=== PATIENT | male | born 1940 | race Caucasian/White ===

== ENCOUNTER 2024-05-02 10:14 | Inpatient (IN) | payer MEDICARE, MEDICAID ==
[~2024-05-02] VITALS: Ht 175.3 cm; Wt 61.4 kg
[2024-05-02] MEDS: normal saline 1000ML IV soln IVB ONE (11:12)
[2024-05-02 11:43] LABS: BASOPHILS % (AUTO) 0.2 % (0-1); EOSINOPHILS # (AUTO) 0.1 X10'3 (0-0.9); HEMATOCRIT 47.6 % (42.0-52.0); HEMOGLOBIN 15.9 g/dl (14.0-17.9); LYMPHOCYTES # (AUTO) 0.5 X10'3 (1.1-4.8); LYMPHOCYTES % (AUTO) 6.4 % (21-51); MEAN CORPUSCULAR HEMOGLOBIN 31.4 PG (27.0-31.0); MEAN CORPUSCULAR HGB CONC 33.5 g/dL (33.0-36.5); MEAN CORPUSCULAR VOLUME 93.8 FL (78-98); MONOCYTES # (AUTO) 0.8 X10'3 (0-0.9); MONOCYTES % (AUTO) 10.1 % (2-12); NEUTROPHILS # (AUTO) 6.2 X10'3 (1.8-7.7); NEUTROPHILS % (AUTO) 82.3 % (42-75); PLATELET COUNT 135 X10'3 (140-440); RED BLOOD COUNT 5.07 X10'6 (4.70-6.10); RED CELL DISTRIBUTION WIDTH 15.4 % (11.5-14.5); WHITE BLOOD COUNT 7.5 X10'3 (4.5-11.0)
[2024-05-02 12:06] LABS: ALANINE AMINOTRANSFERASE 379 U/L (12-78); ALBUMIN 3.3 G/DL (3.4-5.0); ALKALINE PHOSPHATASE 197 IU/L (46-116); ANION GAP 12 (8-16); ASPARTATE AMINO TRANSFERASE 261 U/L (10-37); BILIRUBIN,TOTAL 4.9 MG/DL (0.1-1.0); BLOOD UREA NITROGEN 7 MG/DL (7-18); BUN/CREATININE RATIO 10.9 (10.0-20.0); CALCIUM 8.5 MG/DL (8.5-10.1); CHLORIDE 108 MMOL/L (99-107); CREATININE 0.64 MG/DL (0.60-1.10); GLUCOSE 87 MG/DL (70-104); POTASSIUM 3.5 MMOL/L (3.5-5.1); SODIUM 144 MMOL/L (135-145); TOTAL CARBON DIOXIDE 23.6 MMOL/L (24-32); eCRCL 79 ML/MIN; eGFR > 90 ML/MIN
[2024-05-02 12:37] LABS: ALBUMIN/GLOBULIN RATIO 1.2 (1.1-1.5)
[2024-05-02] MEDS ORDERED: potassium Cl 40MEQ/1/2NS 520ml 520 ML IV PRN (13:10)
[2024-05-02] MEDS ORDERED: magnesium hydroxide 30ml (MOM) UD suspension PO PRN (13:10)
[2024-05-02] MEDS ORDERED: magnesium sulf-water 2g/50mL 50 ML IV PRN (13:10)
[2024-05-02] MEDS ORDERED: mag hydrox/Alum hydrox/simeth 30ml oral suspension PO PRN (13:10)
[2024-05-02] MEDS ORDERED: magnesium sulf-water 4G/100mL 100 ML IV PRN (13:10)
[2024-05-02] MEDS ORDERED: morphine 2 MG/ML inj. syringe IV PRN (13:10)
[2024-05-02] MEDS ORDERED: potassium Cl 20 mEq SR tablet PO PRN ×2 (13:10)
[2024-05-02 13:58] LABS: LIPASE 111 U/L (16-77)
[2024-05-02] MEDS: ondansetron/PF 4mg/2ml inj IV PRN (16:24)
[2024-05-02] MEDS: morphine 2 MG/ML inj. syringe IV PRN (16:25)
[2024-05-02] MEDS: ringers solution, lacted 1,000 ML IV SCH (16:25)
[2024-05-02] MEDS: ringers solution, lacted 1,000 ML IV STA (16:25)
[2024-05-02] MEDS: docusate sod 100mg capsule PO SCH (20:00)
[2024-05-02] MEDS: K and/or MAG REPLACEMENT MC SCH (20:00)
[2024-05-02] MEDS: heparin, porcine 5000 units/ml vial SQ SCH (20:00)
[2024-05-02] MEDS: piperacillin/tazo 3.375gm/50ml 50 ML IV SCH (21:20)
[2024-05-02 22:00] VITALS: BP 123/72; PULSE 84; RESP 19; TEMP 98.7; O2SAT 95
[2024-05-02 23:46] VITALS: RESP 19; O2SAT 95
[2024-05-03] VITALS (16 sets, daily range): BP systolic 101–144; BP diastolic 58–81; PULSE 62–92; RESP 13–18; TEMP 97.2–97.9; O2SAT 92–97
[2024-05-03] MEDS ORDERED: LIDO700A47 TOP (00:58)
[2024-05-03] MEDS ORDERED: MELA1TAB52 PO (00:58)
[2024-05-03] MEDS ORDERED: MULT-1085 PO (00:58)
[2024-05-03] MEDS ORDERED: ALBU18HF2 INH (00:58)
[2024-05-03] MEDS ORDERED: prevagen (00:58)
[2024-05-03] MEDS ORDERED: ANTI1CAP5 (00:58)
[2024-05-03] MEDS ORDERED: SACC250C12 (00:58)
[2024-05-03] MEDS ORDERED: MAGN24002 PO (00:58)
[2024-05-03] MEDS ORDERED: ACET325C6 PO (00:58)
[2024-05-03] MEDS ORDERED: APIX5TAB3 PO (00:58)
[2024-05-03] MEDS ORDERED: ATOR-2 PO (00:58)
[2024-05-03] MEDS ORDERED: BISA10SU60 RC (00:58)
[2024-05-03] MEDS ORDERED: FLUT1BLS4 INH (00:58)
[2024-05-03] MEDS ORDERED: EMPA10TA PO (00:58)
[2024-05-03] MEDS ORDERED: NA P230E (00:58)
[2024-05-03 06:12] LABS: BASOPHILS % (AUTO) 0.7 % (0-1); EOSINOPHILS # (AUTO) 0.1 X10'3 (0-0.9); EOSINOPHILS % (AUTO) 1.4 % (0-6); HEMATOCRIT 44.2 % (42.0-52.0); HEMOGLOBIN 14.4 g/dl (14.0-17.9); LYMPHOCYTES # (AUTO) 0.7 X10'3 (1.1-4.8); MEAN CORPUSCULAR HEMOGLOBIN 30.8 PG (27.0-31.0); MEAN CORPUSCULAR HGB CONC 32.6 g/dL (33.0-36.5); MEAN CORPUSCULAR VOLUME 94.4 FL (78-98); MONOCYTES # (AUTO) 0.7 X10'3 (0-0.9); NEUTROPHILS # (AUTO) 5.9 X10'3 (1.8-7.7); NEUTROPHILS % (AUTO) 79.9 % (42-75); PLATELET COUNT 126 X10'3 (140-440); RED BLOOD COUNT 4.68 X10'6 (4.70-6.10); RED CELL DISTRIBUTION WIDTH 15.4 % (11.5-14.5); WHITE BLOOD COUNT 7.3 X10'3 (4.5-11.0)
[2024-05-03 06:26] LABS: ALANINE AMINOTRANSFERASE 250 U/L (12-78); ALBUMIN 2.7 G/DL (3.4-5.0); ALBUMIN/GLOBULIN RATIO 1.1 (1.1-1.5); ALKALINE PHOSPHATASE 185 IU/L (46-116); ANION GAP 13 (8-16); ASPARTATE AMINO TRANSFERASE 124 U/L (10-37); BLOOD UREA NITROGEN 10 MG/DL (7-18); BUN/CREATININE RATIO 12.3 (10.0-20.0); CALCIUM 8.4 MG/DL (8.5-10.1); CHLORIDE 107 MMOL/L (99-107); CREATININE 0.81 MG/DL (0.60-1.10); GLUCOSE 62 MG/DL (70-104); MAGNESIUM 1.7 MG/DL (1.5-2.4); POTASSIUM 4.4 MMOL/L (3.5-5.1); SODIUM 141 MMOL/L (135-145); TOTAL CARBON DIOXIDE 21.4 MMOL/L (24-32); TOTAL PROTEIN 5.2 G/DL (6.4-8.2); eCRCL 62 ML/MIN; eGFR > 90 ML/MIN
[2024-05-03] MEDS: sod chloride 0.9% 10ml flush syringe IV SCH (08:00)
[2024-05-03] MEDS ORDERED: iohexol 300mg/ml 100ml inj. ONE (13:46)
[2024-05-03] MEDS ORDERED: glucagon, human recombinant 1mg kit ONE ×2 (14:04→14:05)
[2024-05-03] MEDS ORDERED: fentaNYL/PF 50MCG/1 ML 2ML syringe ONE (14:04)
[2024-05-03] MEDS ORDERED: LIDOcaine 2% Viscous 15ml cup ONE (14:05)
[2024-05-03] MEDS ORDERED: MIDAZolam 1 MG/ML 5ML VIAL ONE (14:05)
[2024-05-03] MEDS ORDERED: epiNEPHrine 0.1mg/ml 10ml syringe ONE (14:06)
[2024-05-03] MEDS ORDERED: diphenhydrAMINE 50 mg/ml inj ONE (14:06)
[2024-05-03] MEDS ORDERED: albuterol 2.5 MG/3 ML nebule NEB PRN (15:40)
[2024-05-03] MEDS ORDERED: acetaminophen 325mg tablet PO PRN (15:40)
[2024-05-03] MEDS ORDERED: apixaban 5mg tablet PO SCH (20:00)
[2024-05-03] MEDS: heparin, porcine 5000 units/ml vial SQ SCH (21:31)
[2024-05-04] MEDS: acetaminophen 325mg tablet PO PRN (01:40)
[2024-05-04 02:00] VITALS: BP 113/62; PULSE 76; RESP 19; TEMP 97.8; O2SAT 96
[2024-05-04 06:50] LABS: BASOPHILS % (AUTO) 0.3 % (0-1); EOSINOPHILS # (AUTO) 0.1 X10'3 (0-0.9); EOSINOPHILS % (AUTO) 1.5 % (0-6); HEMATOCRIT 44.2 % (42.0-52.0); HEMOGLOBIN 14.8 g/dl (14.0-17.9); LYMPHOCYTES # (AUTO) 0.7 X10'3 (1.1-4.8); LYMPHOCYTES % (AUTO) 8.4 % (21-51); MEAN CORPUSCULAR HEMOGLOBIN 31.2 PG (27.0-31.0); MEAN CORPUSCULAR HGB CONC 33.4 g/dL (33.0-36.5); MEAN CORPUSCULAR VOLUME 93.3 FL (78-98); MEAN PLATELET VOLUME 9.8 FL (7.4-10.4); MONOCYTES # (AUTO) 0.8 X10'3 (0-0.9); MONOCYTES % (AUTO) 10.2 % (2-12); NEUTROPHILS # (AUTO) 6.4 X10'3 (1.8-7.7); NEUTROPHILS % (AUTO) 79.6 % (42-75); PLATELET COUNT 130 X10'3 (140-440); RED BLOOD COUNT 4.74 X10'6 (4.70-6.10)
[2024-05-04 07:00] VITALS: BP 98/61; PULSE 79; RESP 19; TEMP 98.1; O2SAT 94
[2024-05-04 07:13] LABS: ALANINE AMINOTRANSFERASE 173 U/L (12-78); ALBUMIN 2.7 G/DL (3.4-5.0); ALKALINE PHOSPHATASE 148 IU/L (46-116); ANION GAP 15 (8-16); ASPARTATE AMINO TRANSFERASE 65 U/L (10-37); BILIRUBIN,TOTAL 1.9 MG/DL (0.1-1.0); BLOOD UREA NITROGEN 10 MG/DL (7-18); BUN/CREATININE RATIO 10.1 (10.0-20.0); CALCIUM 8.7 MG/DL (8.5-10.1); CHLORIDE 107 MMOL/L (99-107); CREATININE 0.99 MG/DL (0.60-1.10); GLUCOSE 68 MG/DL (70-104); MAGNESIUM 1.6 MG/DL (1.5-2.4); SODIUM 141 MMOL/L (135-145); TOTAL CARBON DIOXIDE 19.5 MMOL/L (24-32); TOTAL PROTEIN 5.5 G/DL (6.4-8.2); eCRCL 51 ML/MIN; eGFR 73 ML/MIN
[2024-05-04] MEDS: atorvastatin 20mg tablet PO SCH (07:46)
[2024-05-04 08:00] VITALS: RESP 18; O2SAT 96
[2024-05-04 11:00] VITALS: BP 97/57; PULSE 76; RESP 20; TEMP 98.8; O2SAT 96
[2024-05-04] MEDS ORDERED: METR-159 PO (14:25)
[2024-05-04] MEDS ORDERED: CIPR-202 PO (14:25)
== END 2024-05-04 17:08 | disposition swing bed (61) | DRG 444 ==
LOC: ER 10:15 → UNDOADMIN 13:08 → ED HOLD 13:08 → PCU 3S 21:35
PROVIDERS: ADMIT Nurse Practitioner Family; ATTEND Nurse Practitioner Family
PROC: 0FC98ZZ Extirpation of Matter from Common Bile Duct, Via Natural or Artificial Opening Endoscopic (ICD-10-PCS; principal; 2024-05-03)
PROC: BF101ZZ Fluoroscopy of Bile Ducts using Low Osmolar Contrast (ICD-10-PCS; 2024-05-03)
DX: K80.50 Calculus of bile duct without cholangitis or cholecystitis without obstruction (principal); K85.10 Biliary acute pancreatitis without necrosis or infection; I69.351 Hemiplegia and hemiparesis following cerebral infarction affecting right dominant side; Z66 Do not resuscitate; R74.01 Elevation of levels of liver transaminase levels; K82.8 Other specified diseases of gallbladder; Z87.891 Personal history of nicotine dependence; Z79.01 Long term (current) use of anticoagulants; Z79.899 Other long term (current) drug therapy
CPT/HCPCS: 36415; 43260; 74181; 80053; 83605; 83690; 83735; 84145; 85025; 86140; 87081; 92508; 92616; 96360; 99152; 99153; 99285; A4620; C1769; G0378; J0171; J1200; J1610; J1644; J2250; J2270; J2405; J2543; J3010; J7030; J7120; Q9967